=== PATIENT | male | born 1945 | race Caucasian/White ===

== ENCOUNTER → 2017-01-14 | Day surgery (SDC) | payer MEDICARE, BC ==
[~2017-01-14] MED LIST: Lactated Ringers 1,000 ML IV SCH; Propofol 200 MG/20 ML SDV IV ONE
[2017-01-14 08:52] VITALS: BP 134/86
--- NOTE | 2017-01-14 12:52 | OR ---
DATE OF OPERATION: 01/14/2017 PREOPERATIVE DIAGNOSIS: 1. FOLLOW UP POLYPS. 2. FAMILY HISTORY OF COLON CANCER. POSTOPERATIVE DIAGNOSIS: 1. FOLLOW UP POLYPS. 2. FAMILY HISTORY OF COLON CANCER. SURGEON: Gabo Viera MD PROCEDURE: FULL LENGTH COLONOSCOPY. ANESTHESIA: [employer] MANAGER due to coronary artery disease. COMPLICATIONS: None. FINDINGS: Normal full length colonoscopy. RECOMMENDATIONS: Routine colonoscopy every 5 years given the patient's family history of colon cancer. INDICATIONS: The patient had a prior colonoscopy six years ago where he had polyps removed. He also has a father with a history of colon cancer. He is due for a followup scope. DESCRIPTION OF PROCEDURE: The patient was prepped and draped, placed in the left lateral decubitus position. A lubricated Olympus colonoscope was inserted and safely and easily advanced to the cecum. Direct visualization of the ileocecal valve and appendiceal orifice was accomplished. The bowel prep was excellent. Upon withdrawal of the scope throughout the entire length of the colon, I found no signs of any polyps, mass, ulceration, bleeding sites. No vascular abnormalities or signs of colitis. There was no significant diverticular disease. The rectal vault was benign. Retroflexion scope in the rectum showed some perianal hemorrhoidal disease, but not acutely inflamed. Air was then suctioned, and scope removed without complication. SUDHEER/JEANNA /[id number]
== END ==
LOC: CC.SDS 07:20
PROVIDERS: ATTEND Family Medicine
DX: Z12.11 Encounter for screening for malignant neoplasm of colon (principal); Z86.010 Personal history of colon polyps; K64.9 Unspecified hemorrhoids; E78.5 Hyperlipidemia, unspecified; I25.10 Atherosclerotic heart disease of native coronary artery without angina pectoris; Z80.0 Family history of malignant neoplasm of digestive organs; Z95.1 Presence of aortocoronary bypass graft; Z95.5 Presence of coronary angioplasty implant and graft; Z79.82 Long term (current) use of aspirin; Z79.899 Other long term (current) drug therapy; Z88.8 Allergy status to other drugs, medicaments and biological substances
CPT/HCPCS: G0105; J2704; J7120; 00810

== ENCOUNTER → 2022-01-22 | Day surgery (SDC) | payer MEDICARE, BC ==
[~2022-01-22] MED LIST changes: +Glycopyrrolate 0.2 MG/ML 2 ML SDV ONE; +Ketamine 200 MG/20 ML MDV ONE; +Phenylephrine 1% 10 MG/ML SDV ONE; -Propofol 200 MG/20 ML SDV IV ONE; +Propofol 200 MG/20 ML SDV ONE; +fentaNYL 100 MCG/2 ML SDV ONE
[2022-01-22 12:40] VITALS: BP 116/69; PULSE 60
== END ==
LOC: CC.SDS 10:47
PROVIDERS: ATTEND Family Medicine
DX: Z12.11 Encounter for screening for malignant neoplasm of colon (principal); D12.3 Benign neoplasm of transverse colon; I10 Essential (primary) hypertension; I25.2 Old myocardial infarction; I25.10 Atherosclerotic heart disease of native coronary artery without angina pectoris; E66.9 Obesity, unspecified; Z98.890 Other specified postprocedural states; Z95.1 Presence of aortocoronary bypass graft; Z80.0 Family history of malignant neoplasm of digestive organs; Z86.010 Personal history of colon polyps; Z79.899 Other long term (current) drug therapy; Z68.31 Body mass index [BMI] 31.0-31.9, adult
CPT/HCPCS: 00811; J2370; J2704; J3010; J3490; J7120